=== PATIENT | male | born 1985 | race African-American/Black ===

== ENCOUNTER 2018-02-02 18:36 | Emergency (ER) | payer MEDICAID ==
[~2018-02-02] VITALS: Ht 172.7 cm; Wt 65.8 kg
[2018-02-02 18:45] VITALS: BP 115/70
[2018-02-02] MEDS ORDERED: Bactrim-DS 1 tab ORAL ONE (19:45)
[2018-02-02] MEDS ORDERED: Tylenol #3 tab (300mg/30mg) ORAL ONE (19:45)
[2018-02-02] MEDS ORDERED: Cephalexin 500mg cap ORAL ONE (19:45)
--- NOTE | 2018-02-02 19:46 | Emergency Room Report ---
History of Present Illness General Chief Complaint: Skin Rash/Abscess Source: Patient Present Illness HPI 33-year-old male presents to the emergency department complaining of localized 10 out of 10 in severity pain, tenderness, erythema and swelling to the right buttock over the course of 4 days. Patient reports he has history of multiple repeated skin infections in the area. Patient states that he attempted to relieve his symptoms with sitz baths, however they provided no relief. Patient denies fevers, chills he reports that there is some drainage coming out of a small lesion. Pt. reports in the past he has needed some I & D's performed. He states some also resolve on their own. Pt. reports that is he trying to avoid I & D if possible. He is up-to-date with tetanus vaccinations. Denies significant past medical history of history of immune compromise. Pain exacerbated with sitting. Allergies: Coded Allergies: IBUPROFEN (Verified Allergy, Unknown, 02/02/18) TRAMADOL (Verified Allergy, Unknown, 02/02/18) Patient History Past Medical History: see triage record Past Surgical History: none Pertinent Family History: none Immunizations: UTD Reviewed Nursing Documentation: PMH: Agreed; PSxH: Agreed Nursing Documentation-PMH Past Medical History: No Stated History Review of Systems All Other Systems: negative except mentioned in HPI Physical Exam Vital Signs Date Time Temp Pulse Resp B/P (MAP) Pulse Ox O2 Delivery O2 Flow Rate FiO2 02/02/18 18:43 97.9 76 18 113/72 100 Room Air Sp02 EP Interpretation: reviewed, normal General Appearance: no apparent distress, alert, GCS 15, non-toxic Head: normocephalic, atraumatic Eyes: bilateral eye normal inspection, bilateral eye PERRL ENT: hearing grossly normal, normal voice Neck: full range of motion Respiratory: lungs clear, normal breath sounds, speaking full sentences Cardiovascular #1: regular rate, rhythm Musculoskeletal: back normal, gait/station normal, normal range of motion, non- tender Neurologic: alert, oriented x3, responsive, motor strength/tone normal, sensory intact, speech normal, grossly normal Psychiatric: judgement/insight normal Skin: no rash, warm/dry, well hydrated, other - 3cm induration and erythema of the medial right buttock . Small punctate wound that is draining. no palpable fluctuance. no blisters or vessicles. pt has moderate scar tissue bilaterally. Medical Decision Making PA Attestation Dr. Mosley is my supervising Physician whom patient management has been discussed with. Diagnostic Impression: Primary Impression: Abscess of right buttock ER Course 33-year-old male presents to the emergency department complaining of localized 10 out of 10 in severity pain, tenderness, erythema and swelling to the right buttock over the course of 4 days. Patient reports he has history of multiple repeated skin infections in the area. Patient states that he attempted to relieve his symptoms with sitz baths, however they provided no relief. Patient denies fevers, chills he reports that there is some drainage coming out of a small lesion. Pt. reports in the past he has needed some I & D's performed. He states some also resolve on their own. Pt. reports that is he trying to avoid I & D if possible. He is up-to-date with tetanus vaccinations. Denies significant past medical history of history of immune compromise. Pain exacerbated with sitting. Ddx considered but are not limited to cellulitis, ST abscess, insect bite, pilonidal abscess, perirectal abscess just to name a few. Vital signs: are WNL, pt. is afebrile H&PE are most consistent with Right Buttock abscess. ORDERS: none required at this time, the diagnosis is clinical ED INTERVENTIONS: -I & D deferred by pt. will come back for 72 hour wound check and if symptoms not improving will do I & D at that time. pt. would like to avoid I & D if at all possible. - Keflex, Bactrim and T3 given PO - I reviewed this pt. CURES report and there are no active prescriptions for controlled substances in [place] at this time. DISCHARGE: At this time pt. is stable for d/c to home. Will provide printed patient care instructions, and any necessary prescriptions. Care plan and follow up instructions have been discussed with the patient prior to discharge. Last Vital Signs Date Time Temp Pulse Resp B/P (MAP) Pulse Ox O2 Delivery O2 Flow Rate FiO2 02/02/18 18:43 97.9 76 18 113/72 100 Room Air Disposition: HOME, SELF-CARE Condition: Stable Scripts Acetaminophen With Codeine (T#3) (TYLENOL #3 TAB*) Y Tab 1 TAB ORAL Q8HR PRN for For Pain, #6 TAB Prov: Mrala Leroy 02/02/18 Cephalexin* (KEFLEX*) 500 Mg Capsule 500 MG ORAL EVERY 12 HOURS for 7 Days, #14 CAP 0 Refills Prov: Marla Leroy 02/02/18 Trimethoprim/Sulfamethoxazole 160/800* (BACTRIM DS TABLET*) 1 Each Tablet 1 TAB ORAL TWICE A DAY for 7 Days, #14 TAB Prov: Marla Leroy 02/02/18 Patient Instructions: Abscess Additional Instructions: Take medications as directed. * Recommend wound check in 72 hours Follow up with a Primary Care Provider in 3-5 days, even if your symptoms have resolved. --Please review list of primary care clinics, if you do not already have a primary care provider Return sooner to ED if new symptoms occur, or current symptoms become worse. Do not drink alcohol, drive, or operate heavy machinery while taking Tylenol #3 as this may cause drowsiness. - Please note that this Emergency Department Report was dictated using [employer] elastic operator lockstitch technology software, occasionally this can lead to erroneous entry secondary to interpretation by the dictation equipment. Marla Leroy Feb 02, 2018 19:46
[2018-02-02] MEDS ORDERED: BACTRIM DS TAB1 EAC1 ORAL (19:55)
[2018-02-02] MEDS ORDERED: CEPHALEXIN500 MG ORAL (19:55)
[2018-02-02] MEDS ORDERED: ACETAMINOPHEN-1 EAC1 ORAL (19:55)
[2018-02-02 20:12] VITALS: BP 117/73
== END 2018-02-02 20:12 | disposition home or self-care (01) ==
LOC: EMR 19:18
DX: L02.31 Cutaneous abscess of buttock (principal); Z88.6 Allergy status to analgesic agent
CPT/HCPCS: 99283